=== PATIENT | male | born 1995 | race Caucasian/White ===

== ENCOUNTER 2019-11-29 10:36 | Emergency (ER) | payer OTHER ==
[2019-11-29 10:44] VITALS: BP 156/59; PULSE 94; TEMP 98.2; BMI 27.2
[2019-11-29] MEDS ORDERED: KETOROLAC TROMETHAMINE 60 MG/2 ML VIAL IM ONE (11:02)
[2019-11-29] MEDS ORDERED: LIDOCAINE HCL 2% (50ML VIAL) INF ONE (11:02)
[2019-11-29] MEDS ORDERED: LIDOCAINE HCL 2% (20ML MULTI-DOSE VIAL) ONE (11:04)
[2019-11-29] MEDS ORDERED: KETOROLAC TROMETHAMINE 60 MG/2 ML VIAL ONE (11:04)
--- NOTE | 2019-11-29 11:17 | PDOC ---
History of Present Illness - General Chief Complaint: Injury Stated Complaint: BROKEN FINGER RT HAND Time Seen by Provider: 11/29/19 10:45 History Source: Patient Exam Limitations: Clinical Condition - History of Present Illness Initial Comments: 11/29/19 11:13 Patient with no significant past medical history present with complaint of pain to right little finger with dislocation of right little finger status post sheet rock accidentally falling on right hand and when he attempted to pull hand, his little finger got stuck in a shoe rack. Reported severe pain to right little finger with visible deformity right little finger. Denies previous injury or trauma to right hand. Denies difficulty moving right hand. Denies any other symptoms Occurred: reports: this morning Past History - Medical History Allergies/Adverse Reactions: Allergies Allergy/AdvReac Type Severity Reaction Status Date / Time No Known Allergies Allergy Verified 11/29/19 10:39 Home Medications: Ambulatory Orders Ibuprofen 800 mg PO Q8H PRN #20 tablet 11/29/19 COPD: No - Psycho-Social/Smoking History Smoking History: Current every day smoker Have you smoked in the past 12 months: Yes Number of Cigarettes Smoked Daily: 0 Information on smoking cessation initiated: Yes - Substance Abuse Hx (Audit-C & DAST Scrn) How often the patient has a drink containing alcohol: Never Score: In Men: 4 or > Positive; In Women: 3 or > Positive: 0 Screen Result (Pos requires Nsg. Audit-10AR): Negative In the last yr the pt used illegal drug/Rx for NonMed reason: Yes Score: Yes response is considered Positive: 1 Screen Result (Positive result requires Nsg. DAST-10): Positive Review of Systems - Review of Systems Able to Perform ROS?: Yes Is the patient limited [place] proficient: No Constitutional: No: Chills, Fever HEENTM: No: Symptoms Reported Respiratory: No: Symptoms reported Cardiac (ROS): No: Symptoms Reported ABD/GI: No: Symptoms Reported Musculoskeletal: Yes: Symptoms Reported, See HPI, Joint Pain (right little finger), Muscle Pain (right hand pain), Joint Stiffness (right little finger) Integumentary: No: Symptoms Reported Neurological: No: Symptoms reported All Other Systems: Reviewed and Negative *Physical Exam - Vital Signs Last Vital Signs Temp Pulse Resp BP Pulse Ox 98.2 F 94 H 18 156/59 L 100 11/29/19 10:39 11/29/19 10:39 11/29/19 10:39 11/29/19 10:39 11/29/19 10:39 - Physical Exam 11/29/19 11:16 GENERAL: Well developed, well nourished. Awake and alert in moderate acute distress. PULMONARY: No evidence of respiratory distress. MUSCULOSKELETAL : moderate tenderness to right little finger with no visible dorsal angulation of distal phalange of middle phalange of right little finger. Mild tenderness to back of right hand. No other visible deformity. SKIN: Warm and dry. Normal capillary refill. Mild swelling to back of right hand. NEUROLOGICAL: Alert, awake, appropriate. No motor deficits in the lower extremities. Gait is normal without ataxia. PSYCHIATRIC: Cooperative. Good eye contact. Appropriate mood and affect. General Appearance: Yes: Nourished, Appropriately Dressed, Apparent Distress Procedures - Splinting Splint Location: Right: Finger (little finger) Pre-Proc Neuro Vasc Exam: normal Pre-Made Type: metal Splint Type: Yes: Finger Post-Proc Neuro Vasc Exam: normal Sven Bandage: no Sling: No Complications: No Post splint xray: Yes Good repositioning: Yes ED Treatment Course - RADIOLOGY Radiology Studies Ordered: Category Date Time Status HAND- RIGHT [RAD] Stat Radiology 11/29/19 10:45 Taken - Medications Given in the ED: ED Medications Discontinued Medications Generic Name Dose Route Start Last Admin Trade Name Freq PRN Reason Stop Dose Admin Ketorolac Tromethamine 60 mg 11/29/19 11:02 11/29/19 11:07 Toradol Injection - IM 11/29/19 11:03 60 mg ONCE ONE Administration Lidocaine HCl 5 mg 11/29/19 11:02 11/29/19 11:07 Xylocaine 2% INF 11/29/19 11:03 5 mg ONCE ONE Administration Medical Decision Making - Medical Decision Making 11/29/19 11:14 Patient with no significant past medical history present with complaint of pain to right little finger with dislocation of right little finger status post sheet rock accidentally falling on right hand and when he attempted to pull hand, his little finger got stuck in a shoe rack. Reported severe pain to right little finger with visible deformity right little finger. Denies previous injury or trauma to right hand. Denies difficulty moving right hand. Denies any other symptoms Exam significant for moderate tenderness to right little finger with no visible dorsal angulation of distal phalange of middle phalange of right little finger. Mild tenderness to back of right hand. No other visible deformity. X-ray of right hand shows no acute fracture but shows dislocation of right middle phalange over right proximal phalange of right little finger. Hardware to right thumb from previous surgery visible. No other findings. Toradol 60 mg IM ordered for pain. Digital block of right little finger placed with 2% lidocaine. Will attempt to reduce dislocated right little finger and will do repeat x-ray post reduction 11/29/19 12:18 Post reduction x-ray shows good alignment and patient placed in a finger splint. Patient stable for discharge on Motrin PRN for pain with orthopedics hand specialist follow-up Discharge - Discharge Information Problems reviewed: Yes Clinical Impression/Diagnosis: Dislocation of right little finger Qualifiers: Encounter type: initial encounter Qualified Code(s): S63.256A - Unspecified dislocation of right little finger, initial encounter Injury of right hand Qualifiers: Encounter type: initial encounter Qualified Code(s): S69.91XA - Unspecified injury of right wrist, hand and finger(s), initial encounter Condition: Improved Disposition: HOME - Admission No - Additional Discharge Information Prescriptions: Ibuprofen 800 mg PO Q8H PRN #20 tablet PRN Reason: pain - Follow up/Referral Referrals: Edward Horn MD [Staff Physician] - Amol Wade MD [Staff Physician] - - Patient Discharge Instructions Patient Printed Discharge Instructions: Finger Dislocation Additional Instructions: X-ray of your hand showed dislocated of right little finger which was fixed. Keep provided finger splint on until to produce follow-up. Take prescribed Motrin as needed for pain. Follow-up referred to orthopedics hand specialist as soon as possible - Post Discharge Activity Work/Back to School Note: Back to Work
== END 2019-11-29 11:59 | disposition home or self-care (01) ==
LOC: JERFT 10:36
PROC: 2W3JX1Z Immobilization of Right Finger using Splint (ICD-10-PCS; principal; 2019-11-29)
PROC: 3E0234Z Introduction of Serum, Toxoid and Vaccine into Muscle, Percutaneous Approach (ICD-10-PCS; 2019-11-29)
DX: S63.256A Unspecified dislocation of right little finger, initial encounter (principal); S69.91XA Unspecified injury of right wrist, hand and finger(s), initial encounter
CPT/HCPCS: 73130-TC-RT-FY; 73140-TC-RT-FY; 99284-25